=== PATIENT | male | born 1990 | race Caucasian/White ===

== ENCOUNTER 2021-02-01 05:49 | Emergency (ER) | payer SELFPAY ==
[2021-02-01 05:50] VITALS: BP 136/77; PULSE 93; RESP 16; TEMP 36.3; O2SAT 97; BMI 21.7
--- NOTE | 2021-02-01 05:56 | CT_ITS ---
STUDY: CT BRAIN WITHOUT CONTRAST REASON FOR EXAM: Male, 30 years old. headache RADIATION DOSAGE (If Supplied By Facility): CTDIvol = ( 44.99 ) mGy, DLP = ( 745.49 ) mGycm TECHNIQUE: Transaxial CT imaging of the brain was performed without administration of intravenous contrast material. Individualized dose optimization techniques were used for this CT. COMPARISON: No relevant priors. FINDINGS: Normal soft tissue structures. Normal calvarium. Normal size ventricles and extra-axial spaces for the patient''s age. Normal white matter tracts of the cerebral hemispheres. Normal basal ganglia and thalami. Normal brainstem. Normal cerebellum. There is no intracranial hemorrhage. There are no findings of an acute ischemic infarction. There is mucoperiosteal inflammatory disease of the paranasal sinuses consistent with mild chronic sinusitis. CT/Brain/Head without Contrast IMPRESSION: Normal unenhanced CT scan of the brain. Mild paranasal sinus disease Electronically Signed: Ricki Silva DO at 6:45 EDT Tel , Service support ,
--- NOTE | 2021-02-01 05:56 | EX.ED.VIS.HA ---
HPI History of Present Illness Chief Complaint: Headache Narrative Narrative: Patient presents with headache. He has a frontal aching pressure headache for the last 8 hours. He cannot get it to go with Tylenol and ibuprofen. He received his Covid vaccination yesterday. It was a second dose. He is unsure if it is from the Covid vaccination side effect. His dad of a brain aneurysm when he was in his 30s which concerned the patient. He has no history of aneurysm himself. Current severity is moderate. Nothing makes it worse. Relieved by nothing. Also has some muscle aches. PFSH PFSH Home Medications NK 02/01/21 [History Last Taken Unknown] Allergy/AdvReac Type Severity Reaction Status Date / Time No Known Allergies Allergy Verified 02/01/21 05:52 Social History Smoking Status: Never smoker ROS ROS ED ROS Narrative ROS General: Denies fever, chills, sweats Eyes: Denies visual changes, blurred vision, double vision ENT: Denies ear pain, rhinorrhea, sore throat Cardiovascular: Denies chest pain, palpitations, heart racing Respiratory: Denies dyspnea, cough, sputum, dyspnea on exertion, orthopnea,PND GI: Denies abdominal pain, nausea, vomiting, diarrhea, constipation, melena : Denies dysuria, hematuria, frequency Musculoskeletal: See HPI Skin: Denies rash, abscess, abrasions Neuro: See HPI Psych: Denies depression, anxiety Endo: Denies polyuria, polydipsia, polyphagia Heme: Denies easy bruising, easy bleeding, lymphadenopathy Allergy: Denies hives, swelling EXAM Physical Exam Narrative Exam Narrative: Vital signs reviewed General: Well-nourished well-developed Head: Normocephalic atraumatic Eyes: Pupils equal round and reactive to light extraocular movements intact ENT: TMs clear no hemotympanum no trauma Neck: Nontender full range of motion Cardiovascular: Regular rate rhythm no murmurs normal S1-S2 Respiratory: No distress clear to auscultation bilaterally chest nontender Abdomen: Soft nontender nondistended normal bowel sounds no masses Back: Nontender no CVA tenderness Extremities: Nontender active range of motion ?4 extremities no trauma Skin: Normal color no trauma Neuro alert oriented cranial nerves II through XII intact normal strength sensation reflexes Const Vital Signs: 02/01/21 05:50 Temperature 97.3 F L Temperature Source Temporal Pulse Rate 93 Respiratory Rate 16 Blood Pressure 136/77 H Blood Pressure Mean 96 Pulse Ox 97 Oxygen Delivery Method Room Air MDM MDM MDM Narrative Medical decision making narrative: At this time I feel the patient has a Covid vaccine related headache. These usually last [address] head obtained to rule out intracranial hemorrhage or other acute abnormality. CT head showed nothing acute. At this time I feel the patient has a Covid vaccine headache and will be discharged. Given Toradol for home. Radiography Diagnostic Testing: Radiology Impression Brain CT 02/01/21 05:56 IMPRESSION: Normal unenhanced CT scan of the brain. Mild paranasal sinus disease Electronically Signed: Ricki Silva DO at 6:45 EDT Tel , Service support , Discharge Plan Triage Chief Complaint: Headache Other Complaint: General Illness ED Provider: Pepe Valenzuela Dx/Rx/DC Orders Clinical Impression: Headache Instructions: ED Headache Unspecified Prescriptions: No Action NK RF: 0 Primary Care Provider: Care Physician,No Primary Referrals: Bjorn Elizabeth DO [NON-STAFF] - Disposition Disposition: Home, self care
[2021-02-01] MEDS: Ketorolac 15 MG/ML Vial IM (06:29)
== END 2021-02-01 06:52 | disposition home or self-care (01) ==
LOC: ED 06:30
PROVIDERS: Emergency Provider Emergency Medicine
DX: R51.9 Headache, unspecified (principal)
CPT/HCPCS: 70450; 96372; 99282